=== PATIENT | male | born 1960 | race Caucasian/White ===

== ENCOUNTER → 2019-10-11 | Emergency (ER) | payer SELFPAY ==
[~2019-10-11] VITALS: Ht 180.3 cm; Wt 113.4 kg
[~2019-10-11] MED LIST: HYDROcodone-ACET 5/325MG TAB PO ONE; TETRACAINE HCL 0.5% OPTH(EYE) SOLN 4ML LEFTEYE ONE; TETRACAINE HCL 0.5% OPTH(EYE) SOLN 4ML ONE
[2019-10-11 22:24] VITALS: BP 128/79
== END | disposition home or self-care (01) ==
LOC: ER 17:27
DX: S05.32XA Ocular laceration without prolapse or loss of intraocular tissue, left eye, initial encounter (principal); W22.8XXA Striking against or struck by other objects, initial encounter; Y93.89 Activity, other specified; Y92.89 Other specified places as the place of occurrence of the external cause; Y99.8 Other external cause status
CPT/HCPCS: 70486